=== PATIENT | male | born 2000 | race African-American/Black ===

== ENCOUNTER 2018-01-02 18:19 | Emergency (ER) | payer SELFPAY ==
[~2018-01-02] VITALS: Ht 185.4 cm; Wt 73.6 kg
[2018-01-02 19:23] LABS: HEMATOCRIT 48.7 % (38.0-50.0); HEMOGLOBIN 17.4 G/DL (12.5-16.6); MCH 31.1 PG (29.0-34.0); MCHC 35.7 G/DL (30.0-36.0); PLATELET COUNT 258 K/uL (156-360); RBC DIS.WIDTH-CV 11.7 % (11.8-14.6); RBC DIS.WIDTH-SD 37.5 % (39-53); WHITE BLOOD COUNT 8.2 K/uL (4.1-10.2)
[2018-01-02 19:33] LABS: CHLORIDE 102 mEq/L (99-109); POTASSIUM 4.5 mEq/L (3.7-5.4); SODIUM 140 mEq/L (136-147)
[2018-01-02 19:35] LABS: GLUCOSE 95 mg/dL (70-99)
[2018-01-02 19:39] LABS: CREATININE 1.1 mg/dL (0.6-1.3); GFR ESTIMATE (CALCULATED) > 59 mL/min/ (58.99-99999)
[2018-01-02 19:40] LABS: UREA NITROGEN (BUN) 12 mg/dL (9-23)
[2018-01-02 19:43] LABS: TROP-I INTERPRETATION NEGATIVE; TROPONIN-I < 0.01 ng/mL (0.0-0.30)
[2018-01-02] MEDS ORDERED: NAPROXEN500 MG PO (21:01)
[2018-01-02 21:23] VITALS: BP 141/69
== END 2018-01-02 21:23 | disposition home or self-care (01) ==
LOC: EME 18:19
PROVIDERS: Physician Assistant
DX: R07.81 Pleurodynia (principal); F12.90 Cannabis use, unspecified, uncomplicated; F17.200 Nicotine dependence, unspecified, uncomplicated
CPT/HCPCS: 71046; 80048; 84484; 85027; 93005; 99281; 99284; J1885; J8540